=== PATIENT | female | born 1985 | race Caucasian/White ===

== ENCOUNTER 2016-07-02 04:41 | Inpatient (IN) | payer OTHER ==
[2016-07-02] MEDS ORDERED: OBEPIDURAL* 250 ML ONE (06:58)
[2016-07-02 07:08] LABS: Hematocrit 41 % (35-47); Hemoglobin 13.9 g/dl (12.0-16.0); Mean Corpuscular HGB Conc 34 g/dl (31-36); Mean Corpuscular Hemoglobin 33 pg (27-31); Mean Corpuscular Volume 96 fL (80-97); Mean Platelet Volume 10 um3 (7.4-10.4); Red Blood Count 4.24 10^6/ul (4.0-5.4); Red Cell Distribution Width 13 % (10.5-15); White Blood Count 10.5 10^3/ul (3.5-10.8)
[2016-07-02] MEDS ORDERED: Sodium Citrate/Citric Acid* 15 ML UDC PO PRN (07:20)
[2016-07-02] MEDS ORDERED: Famotidine TAB* 20 MG PO PRN (07:20)
[2016-07-02] MEDS ORDERED: Phenylephrine IV* 40 MCG/ML 10 ML SYRINGE IV PUSH PRN (07:20)
[2016-07-02] MEDS ORDERED: EPHEDrine (Pressors)* 50 MG/ML VIAL IV PUSH PRN (07:20)
[2016-07-02] MEDS ORDERED: OBEPIDURAL* 250 ML EPIDURAL SCH (08:00)
[2016-07-02] MEDS ORDERED: Oxytocin in LR* 40 UNITS/2,000 ML BAG IVPB ONE (10:05)
[2016-07-02] MEDS ORDERED: Glycerin ADULT SUPP PR PRN (11:23)
[2016-07-02] MEDS ORDERED: Acetaminophen TAB* 325 MG PO PRN (11:23)
[2016-07-02] MEDS ORDERED: oxyCODONE/Acetamin 5/325 MG* TAB PO PRN (11:23)
[2016-07-02] MEDS ORDERED: Oxytocin in LR* 20 UNITS/1,000 ML BAG IVPB SCH (12:00)
[2016-07-02] MEDS: Docusate CAP* 100 MG PO SCH ×2 (15:29→20:53)
[2016-07-02] MEDS: Dibucaine 1% 28.35 GM TUBE PR PRN (15:29)
[2016-07-02] MEDS: Ibuprofen TAB* 600 MG PO PRN ×2 (15:29→20:53)
[2016-07-02] MEDS: Witch Hazel PAD* JAR TOPICAL PRN (15:29)
[2016-07-03 07:06] LABS: Hematocrit 30 % (35-47); Hemoglobin 10.2 g/dl (12.0-16.0); Mean Corpuscular HGB Conc 35 g/dl (31-36); Mean Corpuscular Hemoglobin 33 pg (27-31); Mean Corpuscular Volume 96 fL (80-97); Mean Platelet Volume 9 um3 (7.4-10.4); Red Blood Count 3.07 10^6/ul (4.0-5.4); Red Cell Distribution Width 14 % (10.5-15); White Blood Count 11.7 10^3/ul (3.5-10.8)
[2016-07-03 07:08] LABS: Comments Flag Yes
[2016-07-03] MEDS: Docusate CAP* 100 MG PO SCH ×3 (08:53→20:39)
[2016-07-03] MEDS: Ibuprofen TAB* 600 MG PO PRN ×3 (08:53→20:39)
[2016-07-03] MEDS ORDERED: Ferrous Gluconate TAB* 324 MG TAB PO SCH (09:00)
[2016-07-03] MEDS: Dibucaine 1% 28.35 GM TUBE PR PRN (20:42)
[2016-07-03] MEDS: Witch Hazel PAD* JAR TOPICAL PRN (20:42)
[2016-07-04] MEDS: Ibuprofen TAB* 600 MG PO PRN ×2 (03:34→10:23)
[2016-07-04 08:16] VITALS: BP 117/80
[2016-07-04] MEDS: Docusate CAP* 100 MG PO SCH (09:12)
--- NOTE | 2016-07-04 09:22 | PTEDU ---
Patient Name: KELVIN ELISE KELVIN ELISE selected video: Follow Me Mum: [employer] to view on 07/04 at 9:21:54 AM from [id number]
== END 2016-07-04 14:02 | disposition home or self-care (01) | DRG 775 ==
LOC: MCHOBOUT 04:41 → MCHOB 06:05
PROVIDERS: ADMIT Nurse Practitioner; ATTEND Midwife
PROC: 10E0XZZ Delivery of Products of Conception, External Approach (ICD-10-PCS; principal; 2016-07-02)
PROC: 0KQM0ZZ Repair Perineum Muscle, Open Approach (ICD-10-PCS; 2016-07-02)
PROC: 10907ZC Drainage of Amniotic Fluid, Therapeutic from Products of Conception, Via Natural or Artificial Opening (ICD-10-PCS; 2016-07-02)
DX: O71.4 Obstetric high vaginal laceration alone (principal); Z37.0 Single live birth; Z3A.49 Greater than 42 weeks gestation of pregnancy
CPT/HCPCS: 36415; 85025; 85027; 86850; 86900; 86901; A9270-GY